=== PATIENT | female | born 1970 ===

== ENCOUNTER 2021-11-13 09:20 | Emergency (ER) | payer BC, OTHER ==
[2021-11-13] MEDS ORDERED: Ketorolac 60 MG/2 ML SDV IM ONE (09:32)
[2021-11-13 11:25] VITALS: BP 137/86; PULSE 73
== END 2021-11-13 11:25 | disposition home or self-care (01) ==
LOC: MW.ED 09:20
DX: M54.50 Low back pain, unspecified (principal); I10 Essential (primary) hypertension; E11.9 Type 2 diabetes mellitus without complications
CPT/HCPCS: 74176; 81001; 81025; 96372; 99284; J1885